=== PATIENT | female | born 1965 ===

== ENCOUNTER 2018-01-21 21:19 | Emergency (ER) | payer SELFPAY ==
[2018-01-21 21:38] VITALS: TEMP 98.1
--- NOTE | 2018-01-21 21:38 | C.PDOC ---
History Of Present Illness Patient presents to the ER with a complaint of headache and nausea worsening over the past 5 days. Patient took only one advil a few days ago with no relief. She is currently speaking in complete sentences. Denies weakness or slurred speech. Time Seen by Provider: 01/21/18 21:38 Chief Complaint (Nursing): Headache History Per: Patient History/Exam Limitations: no limitations Onset/Duration Of Symptoms: Days (5) Current Symptoms Are (Timing): Still Present Severity: Moderate Pain Scale Rating Of: 4 Preceeding Symptoms: None Associated Symptoms: Nausea. denies: Extremity Weakness, Other (Slurred speech) Recent travel outside of the [place]: No Past Medical History Reviewed: Historical Data, Nursing Documentation, Vital Signs Vital Signs: Last Vital Signs Temp 98.1 F 01/21/18 21:35 Pulse 76 01/21/18 21:35 Resp 18 01/21/18 21:35 BP 190/105 H 01/21/18 21:35 Pulse Ox 98 01/21/18 21:35 Family History: States: No Known Family Hx - Social History Hx Alcohol Use: No Hx Substance Use: No Review Of Systems Constitutional: Negative for: Fever, Chills Cardiovascular: Negative for: Chest Pain, Palpitations Respiratory: Negative for: Cough, Shortness of Breath Gastrointestinal: Positive for: Nausea Neurological: Positive for: Headache. Negative for: Weakness, Numbness, Change in Speech Physical Exam - Physical Exam Appears: Non-toxic Skin: Warm, Dry Head: Normacephalic Eye(s): bilateral: Normal Inspection, PERRL, EOMI Oral Mucosa: Moist Teeth: Other (Poor dentition) Neck: Trachea Midline, No Midline Cervical Tenderness, No Paracervical Tenderness, Supple Chest: Symmetrical, No Tenderness Cardiovascular: Rhythm Regular Respiratory: No Rales, No Rhonchi, No Wheezing Gastrointestinal/Abdominal: Soft, No Tenderness Neurological/Psych: Oriented x3 ED Course And Treatment - Laboratory Results Result Diagrams: 01/21/18 22:54 01/21/18 22:54 ECG: Interpreted By Me, Viewed By Me ECG Rhythm: Sinus Rhythm (69), Nonspecific Changes O2 Sat by Pulse Oximetry: 98 (Room air) Pulse Ox Interpretation: Normal Progress Note: CT head, EKG, and blood work ordered. Morphine and zofran administered. Reevaluation Time: 02:45 Reassessment Condition: Improved Disposition Counseled Patient/Family Regarding: Studies Performed, Diagnosis, Need For Followup, Rx Given - Disposition Referrals: [facility] [Outside] [facility] [Outside] Disposition: HOME/ ROUTINE Disposition Time: 21:38 Condition: FAIR Additional Instructions: por favor regrese si los sntomas recurren Prescriptions: Naproxen [Naprosyn] 1 tab PO BID PRN #25 tab PRN Reason: Pain Ondansetron ODT [Zofran ODT] 1 odt PO BID PRN #6 odt PRN Reason: Nausea/Vomiting Instructions: Mig[place] Headache (DC) Forms: [employer] (Ukrainian) Print Language: [place] - Clinical Impression Clinical Impression: Headache, [place] - Scribe Statement The provider has reviewed the documentation as recorded by the Scribmanohar Kumar All medical record entries made by the Joseibmanohar were at my direction and personally dictated by me. I have reviewed the chart and agree that the record accurately reflects my personal performance of the history, physical exam, medical decision making, and the department course for this patient. I have also personally directed, reviewed, and agree with the discharge instructions and disposition.
[2018-01-21 22:58] LABS: BASO % 0.4 % (0.0-2.0); EOS % 0.2 % (0.0-4.0); HEMOGLOBIN 14.1 g/dL (11.0-16.0); LYMPH # 2.7 K/uL (1.0-4.3); LYMPH % 24.2 % (20.0-40.0); MEAN CELL VOLUME 86.2 fL (81.0-99.0); MEAN CORPUSCULAR HEMOGLOBIN 29.2 pg (27.0-31.0); MEAN CORPUSCULAR HGB CONC 33.9 g/dL (33.0-37.0); MONO # 0.6 K/uL (0.0-0.8); NEUT # 7.7 K/uL (1.8-7.0); NEUT % 70.2 % (50.0-75.0); NRBC % 0.1 % (0.0-2.0); RBC 4.81 Mil/uL (3.80-5.20); RED CELL DISTRIBUTION WIDTH 15.1 % (11.5-14.5)
[2018-01-21 23:11] LABS: ALBUMIN 4.3 g/dL (3.5-5.0); BLOOD UREA NITROGEN 10 mg/dL (7-17); GFR NON-AFRICAN AMERICAN > 60
[2018-01-21 23:36] LABS: ALT/SGPT 25 U/L (9-52); AST/SGOT 28 U/L (14-36)
[2018-01-22] MEDS ORDERED: Labetalol 25mg/5ml Syringe IVP STA (01:23)
[2018-01-22] MEDS ORDERED: Labetalol 5mg/ml (4ml) ONE (01:51)
[2018-01-22 02:21] VITALS: RESP 18
[2018-01-22 03:01] VITALS: BP 150/71; PULSE 76; O2SAT 99
--- NOTE | 2018-01-22 07:19 | CT ---
Date of service: 01/21/2018 PROCEDURE: CT HEAD WITHOUT CONTRAST. HISTORY: Headache COMPARISON: None available. TECHNIQUE: Axial computed tomography images were obtained through the head/brain without intravenous contrast. Radiation dose: Total exam DLP = 969.28 mGy-cm. This CT exam was performed using one or more of the following dose reduction techniques: Automated exposure control, adjustment of the mA and/or kV according to patient size, and/or use of iterative reconstruction technique. FINDINGS: HEMORRHAGE: No intracranial hemorrhage. BRAIN: No mass effect or edema. No atrophy or chronic microvascular ischemic changes. Punctate hypodensity in the left basal ganglia may represent a prominent perivascular space. VENTRICLES: Unremarkable. No hydrocephalus. CALVARIUM: Unremarkable. PARANASAL SINUSES: Unremarkable as visualized. No significant inflammatory changes. MASTOID AIR CELLS: Unremarkable as visualized. No inflammatory changes. OTHER FINDINGS: None. IMPRESSION: No acute intracranial abnormality. If symptoms persist, consider correlation with MRI. Preliminary report was generated at 11:10 p.m. on 01/21/[address] Kale Guevara from [employer].
--- NOTE | 2018-01-23 07:27 | CARD ---
APPROVED REPORT Date of service: 01/21/2018 EKG Measurement Heart [id number] OK [id number] <Conclusion> Normal sinus rhythm Normal ECG
== END 2018-01-22 03:00 | disposition home or self-care (01) ==
LOC: C.ER 21:19
DX: G43.909 Migraine, unspecified, not intractable, without status migrainosus (principal)
CPT/HCPCS: 70450; 80053; 85025; 93005; 96374; 96375; 99285; J1885; J2270; J2405